=== PATIENT | female | born 1960 | race Caucasian/White ===

== ENCOUNTER 2017-07-14 01:23 | Observation (INO) | payer OTHER ==
--- NOTE | 2017-07-14 02:44 | ED ---
General Adult HPI - General Source: patient, RN notes reviewed Mode of arrival: ambulatory Limitations: no limitations <Betsy Booker - Last Filed: 07/14/17 03:07> <Phil Simpson - Last Filed: 07/20/17 01:15> - General Chief complaint: ENT Stated complaint: Epistaxsis Time Seen by Provider: 07/14/17 01:49 - History of Present Illness Initial comments: 56-year-old female presents to the emergency department with a chief complaint of epistaxis. Patient states this started around 6:00 this morning. She went to the PAC the left side of her nose however she continues to have bleeding from the right side. She states that she is not any blood thinners. She does drink daily. She denies any falls traumas or injuries. They were concerned due to the continued bleeding so they thought that they should be evaluated. The patient has had no other symptoms at this time. Patient denies any recent fever, chills, shortness of breath, chest pain, back pain, abdominal pain, nausea vomiting, numbness or tingling, dysuria or hematuria, constipation or diarrhea, headaches or visual changes, or any other current symptoms. (Betsy Booker) - Related Data Home Medications Medication Instructions Recorded Confirmed Albuterol Inhaler [Ventolin Hfa 1 - 2 puff INHALATION RT-Q6H PRN 07/14/17 Inhaler] Previous Rx's Medication Instructions Recorded Acetaminophen Tab [Tylenol] 650 mg PO Q6HR PRN tab 07/14/17 Cephalexin [Keflex] 500 mg PO Q6HR 3 Days cap 07/14/17 Clindamycin [Cleocin] 150 mg PO QID cap 07/14/17 HYDROcodone/APAP 5-325MG [Alma 1 each PO Q4HR PRN tab 07/14/17 5-325] Nicotine 14Mg/24Hr Patch [Habitrol] 1 patch TRANSDERM DAILY patch 07/14/17 Thiamine [Vitamin B-1] 100 mg PO BID@1200,1700 tab 07/14/17 Allergies Allergy/AdvReac Type Severity Reaction Status Date / Time erythromycin base Allergy Dyspnea Verified 07/14/17 08:36 Penicillins Allergy Rash/Hives Verified 07/14/17 08:36 Sulfa (Sulfonamide Allergy Dyspnea Verified 07/14/17 08:36 Antibiotics) Review of Systems ROS Other: All systems not noted in ROS Statement are negative. <Betsy Booker - Last Filed: 07/14/17 03:07> ROS Other: All systems not noted in ROS Statement are negative. <Phil Simpson - Last Filed: 07/20/17 01:15> ROS Statement: Those systems with pertinent positive or pertinent negative responses have been documented in the HPI. Past Medical History Past Medical History: Asthma, Hypertension Additional Past Medical History / Comment(s): pancreas issues in past History of Any Multi-Drug Resistant Organisms: None Reported Past Surgical History: Appendectomy, Section Past Psychological History: Anxiety Smoking Status: Current every day smoker Past Alcohol Use History: Daily Past Drug Use History: None Reported <Betsy Booker - Last Filed: 07/14/17 03:07> General Exam Limitations: no limitations General appearance: alert, in no apparent distress Eye exam: Present: normal appearance. Absent: scleral icterus, conjunctival injection, periorbital swelling ENT exam: Present: other (Bleeding from the right near. Patient appears her rhinorocket to the left naris) Neck exam: Present: normal inspection. Absent: tenderness, meningismus, lymphadenopathy Respiratory exam: Present: normal lung sounds bilaterally. Absent: respiratory distress, wheezes, rales, rhonchi, stridor Cardiovascular Exam: Present: regular rate, normal rhythm, normal heart sounds. Absent: systolic murmur, diastolic murmur, rubs, gallop, clicks Extremities exam: Present: normal inspection, full ROM, normal capillary refill. Absent: tenderness, pedal edema, joint swelling, calf tenderness Back exam: Present: normal inspection Neurological exam: Present: alert, oriented X3 Psychiatric exam: Present: normal affect, normal mood Skin exam: Present: warm, dry, intact, normal color. Absent: rash <Betsy Booker - Last Filed: 07/14/17 03:07> Course <Betsy Booker - Last Filed: 07/14/17 03:07> <Phil Simpson - Last Filed: 07/20/17 01:15> Vital Signs 07/14/17 07/14/17 07/14/17 01:32 03:11 04:44 Temperature 97.2 F L 98 F 98.3 F Pulse Rate 110 H 109 H 105 H Respiratory 16 18 18 Rate Blood Pressure 134/78 127/94 130/95 O2 Sat by Pulse 97 97 96 Oximetry 07/14/17 07/14/17 05:13 05:22 Temperature 97.9 F Pulse Rate 96 Respiratory 20 Rate Blood Pressure 129/89 O2 Sat by Pulse 96 Oximetry - Reevaluation(s) Reevaluation #1: 07/14/17 03:07 Patient reassessed at this time. Patient is no longer bleeding. (Betsy Booker) Procedures <Betsy Booker - Last Filed: 07/14/17 03:07> <Phil Simpson - Last Filed: 07/20/17 01:15> - Procedures Initial comment: At this time patient underwent Afrin spray and then a Merocel nasal packing was placed to the right near. Patient tolerated this well. Bleeding has subsided. (Betsy Booker) Medical Decision Making <Betsy Booker - Last Filed: 07/14/17 03:07> - Lab Data Result diagrams: 07/14/17 11:21 07/14/17 03:30 <Phil Simpson - Last Filed: 07/20/17 01:15> - Medical Decision Making 56-year-old female presents to the emergency department with chief complaint of epistaxis. At this time we did watch the patient has subsided after packing. This time patient will be discharged home. We will put her on antibiotics we discussed follow-up with ENT. We did discuss return parameters all questions. Patient stated the [facility] management plan. They will be discharged. (Betsy Booker) - Lab Data Lab Results 07/14/17 07/14/17 07/14/17 Range/Units 03:30 03:30 03:30 WBC 9.3 (3.8-10.6) k/uL RBC 4.16 (3.80-5.40) m/uL Hgb 13.3 (11.4-16.0) gm/dL Hct 40.3 (34.0-46.0) % MCV 96.8 (80.0-100.0) fL MCH 32.0 (25.0-35.0) pg MCHC 33.1 (31.0-37.0) g/dL RDW 12.7 (11.5-15.5) % Plt Count 260 (150-450) k/uL Neutrophils % 69 % Lymphocytes % 18 % Monocytes % 8 % Eosinophils % 1 % Basophils % 0 % Neutrophils # 6.4 (1.3-7.7) k/uL Lymphocytes # 1.7 (1.0-4.8) k/uL Monocytes # 0.8 (0-1.0) k/uL Eosinophils # 0.1 (0-0.7) k/uL Basophils # 0.0 (0-0.2) k/uL PT 10.1 (9.0-12.0) sec INR 1.0 (<1.2) APTT 25.3 (22.0-30.0) sec Sodium 134 L (137-145) mmol/L Potassium 4.0 (3.5-5.1) mmol/L Chloride 99 (98-107) mmol/L Carbon Dioxide 24 (22-30) mmol/L Anion Gap 11 mmol/L BUN 14 (7-17) mg/dL Creatinine 0.60 (0.52-1.04) mg/dL Est GFR (MDRD) Af Amer >60 (>60 ml/min/1.73 sqM) Est GFR (MDRD) Non-Af >60 (>60 ml/min/1.73 sqM) Glucose 129 H (74-99) mg/dL Calcium 9.6 (8.4-10.2) mg/dL Total Bilirubin 0.7 (0.2-1.3) mg/dL AST 26 (14-36) U/L ALT 25 (9-52) U/L Alkaline Phosphatase 73 (38-126) U/L Total Protein 7.3 (6.3-8.2) g/dL Albumin 4.2 (3.5-5.0) g/dL Blood Type Blood Type Confirm Blood Type Recheck Antibody Screen Spec Expiration Date 07/14/17 07/14/17 Range/Units 03:58 05:04 WBC (3.8-10.6) k/uL RBC (3.80-5.40) m/uL Hgb (11.4-16.0) gm/dL Hct (34.0-46.0) % MCV (80.0-100.0) fL MCH (25.0-35.0) pg MCHC (31.0-37.0) g/dL RDW (11.5-15.5) % Plt Count (150-450) k/uL Neutrophils % % Lymphocytes % % Monocytes % % Eosinophils % % Basophils % % Neutrophils # (1.3-7.7) k/uL Lymphocytes # (1.0-4.8) k/uL Monocytes # (0-1.0) k/uL Eosinophils # (0-0.7) k/uL Basophils # (0-0.2) k/uL PT (9.0-12.0) sec INR (<1.2) APTT (22.0-30.0) sec Sodium (137-145) mmol/L Potassium (3.5-5.1) mmol/L Chloride (98-107) mmol/L Carbon Dioxide (22-30) mmol/L Anion Gap mmol/L BUN (7-17) mg/dL Creatinine (0.52-1.04) mg/dL Est GFR (MDRD) Af Amer (>60 ml/min/1.73 sqM) Est GFR (MDRD) Non-Af (>60 ml/min/1.73 sqM) Glucose (74-99) mg/dL Calcium (8.4-10.2) mg/dL Total Bilirubin (0.2-1.3) mg/dL AST (14-36) U/L ALT (9-52) U/L Alkaline Phosphatase (38-126) U/L Total Protein (6.3-8.2) g/dL Albumin (3.5-5.0) g/dL Blood Type A Negative Blood Type Confirm A Negative Blood Type Recheck CABO Indicated Antibody Screen NEGATIVE Spec Expiration Date 07/17/2017 1975 Disposition Time of Disposition: 03:07 <Betsy Booker - Last Filed: 07/14/17 03:07> <Phil Simpson - Last Filed: 07/20/17 01:15> Clinical Impression: Anterior epistaxis Disposition: ADMITTED IP TO THIS [facility] Condition: Fair
--- NOTE | 2017-07-14 03:27 | ED ---
Medical Decision Making - Lab Data Result diagrams: 07/14/17 03:30 07/14/17 03:30 - Medical Decision Making Upon discharge the patient started to have additional bleeding from the naris. She states that she hit the cold air she coughed in the bleeding started. Patient at this time is having moderate bleeding from the left naris through the Rhino Rocket. This case will be signed out to Dr. Simpson (Betsy Booker) While the patient's labs were pending, she had a coughing episode and dislodged the packing from her left naris. I replaced the left naris packing in the standard fashion after applying Afrin spray. I then discussed case with Dr. Moreno, who is the on-call ENT specialist. He will see the patient. I also discussed case with Dr. Fabian who is covering the [facility] call schedule and will admit the patient. The patient is offered analgesia and declines at this point stating that she does not want anything that may make her "loopy." She also declined antihypertensive at this point (Phil Simpson) - Lab Data Lab Results 07/14/17 07/14/17 07/14/17 Range/Units 03:30 03:30 03:30 WBC 9.3 (3.8-10.6) k/uL RBC 4.16 (3.80-5.40) m/uL Hgb 13.3 (11.4-16.0) gm/dL Hct 40.3 (34.0-46.0) % MCV 96.8 (80.0-100.0) fL MCH 32.0 (25.0-35.0) pg MCHC 33.1 (31.0-37.0) g/dL RDW 12.7 (11.5-15.5) % Plt Count 260 (150-450) k/uL Neutrophils % 69 % Lymphocytes % 18 % Monocytes % 8 % Eosinophils % 1 % Basophils % 0 % Neutrophils # 6.4 (1.3-7.7) k/uL Lymphocytes # 1.7 (1.0-4.8) k/uL Monocytes # 0.8 (0-1.0) k/uL Eosinophils # 0.1 (0-0.7) k/uL Basophils # 0.0 (0-0.2) k/uL PT 10.1 (9.0-12.0) sec INR 1.0 (<1.2) APTT 25.3 (22.0-30.0) sec Sodium 134 L (137-145) mmol/L Potassium 4.0 (3.5-5.1) mmol/L Chloride 99 (98-107) mmol/L Carbon Dioxide 24 (22-30) mmol/L Anion Gap 11 mmol/L BUN 14 (7-17) mg/dL Creatinine 0.60 (0.52-1.04) mg/dL Est GFR (MDRD) Af Amer >60 (>60 ml/min/1.73 sqM) Est GFR (MDRD) Non-Af >60 (>60 ml/min/1.73 sqM) Glucose 129 H (74-99) mg/dL Calcium 9.6 (8.4-10.2) mg/dL Total Bilirubin 0.7 (0.2-1.3) mg/dL AST 26 (14-36) U/L ALT 25 (9-52) U/L Alkaline Phosphatase 73 (38-126) U/L Total Protein 7.3 (6.3-8.2) g/dL Albumin 4.2 (3.5-5.0) g/dL Blood Type Blood Type Recheck Spec Expiration Date 07/14/17 Range/Units 03:58 WBC (3.8-10.6) k/uL RBC (3.80-5.40) m/uL Hgb (11.4-16.0) gm/dL Hct (34.0-46.0) % MCV (80.0-100.0) fL MCH (25.0-35.0) pg MCHC (31.0-37.0) g/dL RDW (11.5-15.5) % Plt Count (150-450) k/uL Neutrophils % % Lymphocytes % % Monocytes % % Eosinophils % % Basophils % % Neutrophils # (1.3-7.7) k/uL Lymphocytes # (1.0-4.8) k/uL Monocytes # (0-1.0) k/uL Eosinophils # (0-0.7) k/uL Basophils # (0-0.2) k/uL PT (9.0-12.0) sec INR (<1.2) APTT (22.0-30.0) sec Sodium (137-145) mmol/L Potassium (3.5-5.1) mmol/L Chloride (98-107) mmol/L Carbon Dioxide (22-30) mmol/L Anion Gap mmol/L BUN (7-17) mg/dL Creatinine (0.52-1.04) mg/dL Est GFR (MDRD) Af Amer (>60 ml/min/1.73 sqM) Est GFR (MDRD) Non-Af (>60 ml/min/1.73 sqM) Glucose (74-99) mg/dL Calcium (8.4-10.2) mg/dL Total Bilirubin (0.2-1.3) mg/dL AST (14-36) U/L ALT (9-52) U/L Alkaline Phosphatase (38-126) U/L Total Protein (6.3-8.2) g/dL Albumin (3.5-5.0) g/dL Blood Type A Negative Blood Type Recheck CABO Indicated Spec Expiration Date 07/17/2017 5594 Disposition Clinical Impression: Anterior epistaxis Disposition: ADMITTED IP TO THIS [facility] Condition: Fair Instructions: Nosebleed (ED) Prescriptions: Cephalexin [Keflex] 500 mg PO Q6HR 3 Days cap Referrals: Regulo Moreno MD [STAFF PHYSICIAN] - 1-2 days
[2017-07-14 03:51] LABS: Basophils % (A) 0 %; Eosinophils # (A) 0.1 k/uL (0-0.7); Eosinophils % (A) 1 %; HCT 40.3 % (34.0-46.0); HGB 13.3 gm/dL (11.4-16.0); Lymphocytes # (A) 1.7 k/uL (1.0-4.8); Lymphocytes % (A) 18 %; MCHC 33.1 g/dL (31.0-37.0); MCV 96.8 fL (80.0-100.0); Mean Platelet Volume 6.7; Monocytes # (A) 0.8 k/uL (0-1.0); Monocytes % (A) 8 %; Neutrophils # (A) 6.4 k/uL (1.3-7.7); Neutrophils % (A) 69 %; Platelet Count 260 k/uL (150-450); RBC 4.16 m/uL (3.80-5.40); RDW 12.7 % (11.5-15.5); WBC 9.3 k/uL (3.8-10.6)
[2017-07-14 04:00] LABS: Partial Thromboplastin Time 25.3 sec (22.0-30.0); Prothrombin Time 10.1 sec (9.0-12.0)
[2017-07-14 04:03] LABS: ALT 25 U/L (9-52); AST 26 U/L (14-36); Albumin 4.2 g/dL (3.5-5.0); Alkaline Phosphatase 73 U/L (38-126); Anion Gap 11 mmol/L; Blood Urea Nitrogen 14 mg/dL (7-17); Calcium 9.6 mg/dL (8.4-10.2); Carbon Dioxide 24 mmol/L (22-30); Chloride 99 mmol/L (98-107); Glucose 129 mg/dL (74-99); Sodium 134 mmol/L (137-145); Total Bilirubin 0.7 mg/dL (0.2-1.3); Total Protein 7.3 g/dL (6.3-8.2)
[2017-07-14] MEDS ORDERED: OXYMETAZOLINE 0.05% NASL SPRAY 1 SPRAY BOTTLE NASAL STA (04:31)
[2017-07-14] MEDS ORDERED: LORazepam 2 MG/ML INJ IV STA (04:40)
[2017-07-14] MEDS ORDERED: cloNIDine HCL 0.1 MG TAB PO STA (04:41)
[2017-07-14] MEDS ORDERED: SODIUM CHLORIDE 0.9% 1,000 ML IV ONE (05:08)
[2017-07-14 06:02] VITALS: BMI 23.6
[2017-07-14] MEDS ORDERED: NALOXONE 0.4 MG/ML 1 ML VIAL IV PRN (06:59)
[2017-07-14] MEDS ORDERED: LORazepam 2 MG/ML INJ IV PRN ×3 (07:11)
[2017-07-14] MEDS ORDERED: THIAMINE 100 MG/ML 2 ML VIAL IM STA (07:11)
--- NOTE | 2017-07-14 07:13 | P.HPIM ---
History of Present Illness H&P Date: 07/14/17 Chief Complaint: epistaxis 56 year old female with history of intermittent asthma. Patient presented due to severe epistaxis that started the morning of 07/13 at 6 am, stopped for short period then started bleeding non stop again. this has never happened before, denies being on any blood thinners, denies any trauma to the nose. she denies any headache, fever, chills, or bleeding tendency. She admits to drinking on regular basis, few beers daily and had withdrawal in the past when she was drinking vodka. Otherwise denies any symptoms of asthma , and reports using her inhaler once every few weeks Review of Systems Constitutional: Patient denies fever, denies chills, denies night sweating, denies significant weight changes Eyes: Patient denies visual changes, denies eye pain ENT: Patient denies ear pain, denies rhinorrhea, denies sore throat Cardiovascular: Patient denies chest pain, denies exertional dyspnea, denies peripheral leg edema, denies orthopnea, denies paroxysmal nocturnal dyspnea Respiratory:Patient denies cough, denies wheezing, denies shortness of breath Gastrointestinal: Patient denies diarrhea, denies constipation, denies nausea , denies vomiting, denies abdominal pain Genitourinary: Patient denies dysuria, denies hematuria, denies changes in urinary habits, denies genital lesions Musculoskeletal: Patient denies muscle pain, denies joint pain Psychiatric: Patient denies changes in mood or memory, denies suicidal ideation, denies anxiety Endocrine: Patient denies heat intolerance, denies cold intolerance, denies excessive thirst, denies polyuria Neurological: Patient denies focal neurologic deficits, denies weakness, denies numbness, denies tingling Hem/Lymphatic: Patient denies bleeding tendency, denies bruising, denies swollen lymph glands Allergic/Immun: Patient denies recent allergic reactions Skin: Patient denies rashes, denies pruritis, denies ulcers Past Medical History Past Medical History: Asthma Additional Past Medical History / Comment(s): pancreas issues in past History of Any Multi-Drug Resistant Organisms: None Reported Past Surgical History: Appendectomy, Section Past Anesthesia/Blood Transfusion Reactions: No Reported Reaction Past Psychological History: Anxiety Smoking Status: Current every day smoker Past Alcohol Use History: Daily Past Drug Use History: None Reported - Past Family History family Additional Family Medical History / Comment(s): denies any family history of CAD , reports that an uncle had to have a colostomy bag but does not know the reason Medications and Allergies Home Medications Medication Instructions Recorded Confirmed Type Cephalexin [Keflex] 500 mg PO Q6HR 3 Days cap 07/14/17 Rx Allergies Allergy/AdvReac Type Severity Reaction Status Date / Time erythromycin base Allergy Dyspnea Verified 07/14/17 01:40 Penicillins Allergy Rash/Hives Verified 07/14/17 01:39 Sulfa (Sulfonamide Allergy Dyspnea Verified 07/14/17 01:40 Antibiotics) Physical Exam Vitals: Vital Signs Temp Pulse Pulse Resp BP BP Pulse Ox 07/14/17 06:22 109 H 18 07/14/17 05:42 97.9 F 109 H 18 138/92 94 L 07/14/17 05:22 97.9 F 07/14/17 05:13 96 20 129/89 96 07/14/17 04:44 98.3 F 105 H 18 130/95 96 07/14/17 03:11 98 F 109 H 18 127/94 97 07/14/17 01:32 97.2 F L 110 H 16 134/78 97 Intake and Output 07/13/17 07/14/17 07/14/17 22:59 06:59 14:59 Other: Weight 56.699 kg Constitutional: No acute distress, conversant, pleasant Eyes: Anicteric sclerae, moist conjunctiva, no lid-lag Pupils equal round reactive to light ENMT: NC/AT nasal packing bilaterally with still some active bleeding evident by blood oozing around the nasal packing. Oropharynx clear, no erythema, exudates Neck: Supple, FROM, no masses, or JVD No carotid bruits No thyromegaly Lungs: Clear to auscultation Clear to percussion Normal respiratory effort, no accessory muscle use Cardiovascular: Heart regular in rate and rhythm, No murmurs, gallops, or rubs No peripheral edema Abdominal: Soft Nontender, no guarding, rebound or rigidity Abdomen moving with respiration Normoactive bowel sounds No hepatomegaly, No splenomegaly No palpable mass No abdominal wall hernia noted Skin: Normal temperature, tone, texture, turgor No induration No subcutaneous nodules No rash, lesions No ulcers Extremities: No digital cyanosis No clubbing Pedal pulses intact and symmetrical Radial pulses intact and symmetrical No calf tenderness Psychiatric: Alert and oriented to person, place and time Appropriate affect fair judgment Neuro Muscles Strength 5/5 in all 4 extremities Sensation to light touch grossly present throughout Cranial nerves II-XII grossly intact No focal sensory deficits Lymphatics: no palpable cervical or supraclavicular , or inguinal lymph nodes Results CBC & Chem 7: 07/14/17 03:30 07/14/17 03:30 Labs: Abnormal Lab Results - Last 24 Hours (Table) 07/14/17 Range/Units 03:30 Sodium 134 L (137-145) mmol/L Glucose 129 H (74-99) mg/dL Thrombosis Risk Factor Assmnt - Choose All That Apply Each Factor Represents 1 point: Age 41-60 years Thrombosis Risk Factor Assessment Total Risk Factor Score: 1 Thrombosis Risk Factor Assessment Level: Low Risk Assessment and Plan (1) Anterior epistaxis Narrative/Plan: denies any trauma denies any bleeding tendency nasal packing bilaterally blood pressure controlled await ENT evaluation Current Visit: Yes Status: Acute Code(s): R04.0 - EPISTAXIS SNOMED Code(s) : 588680961 (2) Alcohol abuse Narrative/Plan: counseled regarding acceptable amount of drinking in women Benzo PRN per CIWA and withdrawal precautions Current Visit: Yes Status: Acute Code(s): F10.10 - ALCOHOL ABUSE, UNCOMPLICATED SNOMED Code(s): 35489309 (3) Smoking Narrative/Plan: counseled to quit smoking NRT offered Current Visit: Yes Status: Acute Code(s): F17.200 - NICOTINE DEPENDENCE, UNSPECIFIED, UNCOMPLICATED SNOMED Code(s): 79289190 (4) DVT prophylaxis Narrative/Plan: avoid pharmacologic anticoagulation due to active epistaxis SCDs Current Visit: Yes Status: Acute Code(s): BFW2573 - SNOMED Code(s): 549656099 Plan: Surrogate decision-maker: daughter Gerardo CODE STATUS:full code DVT prophylaxis: scd Discussed with: Patient, ER, RN Anticipated discharge: <[address]: home A total of 45 minutes were spent on the care of this complex patient more than 50% of the time was spent in counseling and care coordination.
[2017-07-14 08:15] LABS: Basophils % (A) 0 %; Eosinophils # (A) 0.1 k/uL (0-0.7); Eosinophils % (A) 1 %; HCT 37.6 % (34.0-46.0); HGB 12.4 gm/dL (11.4-16.0); Lymphocytes # (A) 1.4 k/uL (1.0-4.8); Lymphocytes % (A) 16 %; MCH 31.6 pg (25.0-35.0); MCHC 33.1 g/dL (31.0-37.0); MCV 95.5 fL (80.0-100.0); Mean Platelet Volume 7.2; Monocytes # (A) 0.6 k/uL (0-1.0); Monocytes % (A) 8 %; Neutrophils # (A) 6.2 k/uL (1.3-7.7); Neutrophils % (A) 74 %; Platelet Count 241 k/uL (150-450); RBC 3.93 m/uL (3.80-5.40); RDW 12.7 % (11.5-15.5); WBC 8.5 k/uL (3.8-10.6)
[2017-07-14] MEDS ORDERED: NICOTINE 14MG/24HR PATCH TRANSDERM SCH (09:00)
[2017-07-14] MEDS ORDERED: HYDROcodone/APAP 5-325MG 1 EACH TAB PO PRN (09:47)
[2017-07-14 12:14] LABS: HCT 38.4 % (34.0-46.0); HGB 12.5 gm/dL (11.4-16.0); MCHC 32.5 g/dL (31.0-37.0); MCV 95.5 fL (80.0-100.0); Mean Platelet Volume 7.3; Platelet Count 246 k/uL (150-450); RBC 4.02 m/uL (3.80-5.40); RDW 13.8 % (11.5-15.5); WBC 7.7 k/uL (3.8-10.6)
[2017-07-14 12:27] LABS: Prothrombin Time 10.1 sec (9.0-12.0)
--- NOTE | 2017-07-14 12:32 | P.PN ---
Subjective Progress Note Date: 07/14/17 Principal diagnosis: epistaxis Patient is a 56-year-old female with a history of EtOH use, asthma, and tobacco abuse who presented to the hospital with complaints of a severe nosebleed. In the ER she underwent an extensive evaluation. Her initial vital signs are found within normal limits. Initial laboratory analysis was normal. In the ER they had placed a nasal tampon inhibitive. For discharge home but she started having moderate bleeding of the left snare through the Rhino Rocket. She had also had an episode of coughing which dislodged the packing from the left snare. She was admitted for observation after they had discussed with Dr. Prieto. On the morning of 07/14 she did develop some coughing up of blood. On exam it appears that this was coming to the back of her throat. She was seen by ENT who recommended antibiotics and monitoring her overnight. Patient seen and examined at bedside. She complains of coughing up blood. She complains of discharge from her left snare. She denies any nausea, vomiting, chest pain, and shortness of breath. She does have a lot of pressure in her face but no overt headache. I discussed with her that she should not to try to extract the blood clot from her left snare believe that in place. I also injected her to attempt to minimize coughing as it appears that she may have dislodged a blood clot which has caused blood to run down the back of her throat resulting in coughing. Objective - Vital Signs Vital signs: Vital Signs Temp 98.8 F 07/14/17 11:35 Pulse 97 07/14/17 11:35 Resp 16 07/14/17 11:35 BP 129/100 07/14/17 11:35 Pulse Ox 93 L 07/14/17 11:35 Intake & Output 07/13/17 07/14/17 07/14/17 18:59 06:59 18:59 Weight 56.699 kg - Exam General: non toxic, mild distress, appears at stated age Derm: warm, dry Head: atraumatic, normocephalic, symmetric, nasal packing in place with large amount of coagulated blood on left nasal tampon. Eyes: EOMI, no lid lag, anicteric sclera Mouth: no lip lesion, mucus membranes moist, + blood dripping down the back of her throat. Large amount of coagulated blood in basin Cardiovascular: S1S2 reg, no murmur, positive posterior tibial pulse bilateral, Lungs: CTA bilateral, no rhonchi, no rales , no accessory muscle use Abdominal: soft, nontender to palpation, no guarding, no appreciable organomegaly Ext: no gross muscle atrophy, no edema, no contractures Neuro: CN II-XI grossly intact, no focal neuro deficits Psych: Alert, oriented, anxious - Labs CBC & Chem 7: 07/14/17 08:04 07/14/17 03:30 Labs: Abnormal Lab Results - Last 24 Hours (Table) 07/14/17 Range/Units 03:30 Sodium 134 L (137-145) mmol/L Glucose 129 H (74-99) mg/dL Assessment and Plan Assessment: Epistaxis -ENT recommendations appreciated -Continue with nasal packing -Recheck CBC and INR Tobacco abuse -Nicotine replacement -Cessation Alcohol abuse -[facility] protocol -Thiamine supplementation DVT prophylaxis: early ambulation Discussed with: Patient, nursing Anticipated discharge: [address]: home A total of 35 minutes was spent on the care of this complex patient more than 50 % of the time was spent in counseling and care coordination.
[2017-07-14] MEDS: CLINDAMYCIN 150 MG CAP PO SCH ×2 (12:46→20:15)
[2017-07-14] MEDS ORDERED: ACETAMINOPHEN TAB 325 MG TAB PO PRN (12:49)
--- NOTE | 2017-07-14 12:55 | CONS ---
CONSULTATION REASON FOR CONSULTATION: Epistaxis. HISTORY: This is a 56-year-old white female who last night developed left-sided epistaxis. She was seen at [facility], had a anterior pack placed on the left. This worked at first but then started bleeding again and she presented to [facility] for further evaluation. She initially had a right-sided nasal pack placed and when she was discharged, apparently sneezed and the left-sided packages came out and then she had a posterior rhino rocket placed on the left. This has controlled the bleeding reasonably well since. She has not had epistaxis previously. She denies any chronic nasal symptoms, any facial pain or pressure. She has a history of tobacco and alcohol use. PAST MEDICAL HISTORY: Positive for pancreas misuse, asthma. PAST SURGICAL HISTORY: Appendectomy, section. SOCIAL HISTORY: Does smoke and drink alcohol. FAMILY HISTORY: Negative for heart, lung, liver disease, diabetes, seizure disorders, bleeding disorders. REVIEW OF SYSTEMS: Facial and nasal discomfort with pack. Otherwise is noncontributory. ALLERGIES: To PENICILLIN, which gives a rash, ERYTHROMYCIN and SULFA. MEDICATIONS AT HOME: Was prescribed Keflex, but has not taken this yet, that was for outpatient use for the nasal packing. GENERAL: This is a well-developed adult white female in no acute distress. Vital signs are stable. She has been mildly hypertensive; however, which appears controlled now. Otherwise, vital signs are stable. HEENT: Head normocephalic and atraumatic. Ears, canals clear, tremors unremarkable. Nose shows a rhino rocket double balloon pack on the left having and a Merocel pack on the right. There is occasional slight bruise on the left. Oral cavity, oropharynx shows no abnormal masses or lesions with no active bleeding posteriorly. Neck is supple without adenopathy or tenderness. ASSESSMENT: 1. Left posterior epistaxis. 2. Hypertension. PLAN: Patient overall is improved at this point and has much better control. I explained to the patient that generally speaking, once a posterior pack was placed, this is left in place for approximately 3 days and then removed. Certainly, may require other intervention such as surgical intervention or embolization if this does not control the bleeding as well as other workup such as a CT if this does not follow general patterns. She will need to be on prophylactic antibiotics as well as some pain medication as these have not been ordered at this point. Would expect that she may be able to be discharged tomorrow if she is doing reasonably well and would see in the office around for packing removal. Please call for any questions or concerns in the meantime. MMODL / IJN: [id number] /
--- NOTE | 2017-07-14 12:58 | CONS ---
CONSULTATION ADDENDUM: Note that 30 minute consultation time with approximately 70% of this in counseling. MMODL / IJN: [id number] /
[2017-07-14 15:29] VITALS: RESP 18
--- NOTE | 2017-07-14 16:23 | P.DS ---
Providers Date of admission: 07/14/17 05:08 Expected date of discharge: 07/14/17 Attending physician: Kerri Vanegas MD Consults: 07/14/17 05:08 Consult Physician Urgent Consulting Provider: Regulo Moreno Reason/Comments: epistaxis Do you want consulting provider notified?: Already Contacted Primary care physician: Stated None - Discharge Diagnosis(es) (1) Acute posterior epistaxis Current Visit: Yes Status: Acute (2) Tobacco abuse Current Visit: Yes Status: Acute (3) Alcohol abuse Current Visit: Yes Status: Acute Hospital Course: Patient is a 56-year-old female with a history of EtOH use, asthma, and tobacco abuse who presented to the hospital with complaints of a severe nosebleed. In the ER she underwent an extensive evaluation. Her initial vital signs are found within normal limits. Initial laboratory analysis was normal. In the ER they had placed a nasal tampon initially. For discharge home but she started having moderate bleeding of the left snare through the [employer]. She had also had an episode of coughing which dislodged the packing from the left nare, this was replaced in the emergency department. She was admitted for observation after they had discussed with Dr. Prieto. She was evaluated by ENT ( Dr. Moreno) who recommended leaving nasal packing in place for 72 hours , antibiotics, and monitoring her overnight. He stated that if bleeding did not improve or worsened she would need surgery on embolization. After his initial evaluation on the morning of 07/14 she did develop some coughing up of blood. On exam it appears that this was coming down the back of her throat. This slowed for a few hours, but then recurred. ENT was again contacted and recommended transfer the [facility] for definitive treatment of her posterior nose bleed. Patient has not been on any anticoagulants or antiplatelets. She denies any over the counter ASA or NSAIDS, she has not been talking any supplements. She was placed on CIWA protocol for drinking a few beers daily. [facility] Llamas was contacted and Dr. Porter graciously accepted the patient in transfer for definitive management. For physical exam from day of discharge please see progress note same date. A total of 40 minutes was spent on the discharge of this complex patient. Pertinent Studies: None Patient Condition at Discharge: Fair Plan - Discharge Summary New Discharge Prescriptions: New Cephalexin [Keflex] 500 mg PO Q6HR 3 Days cap Acetaminophen Tab [Tylenol] 650 mg PO Q6HR PRN tab PRN Reason: Fever And/ Or Pain Clindamycin [Cleocin] 150 mg PO QID cap HYDROcodone/APAP 5-325MG [Warren 5-325] 1 each PO Q4HR PRN tab PRN Reason: Pain Nicotine 14Mg/24Hr Patch [Habitrol] 1 patch TRANSDERM DAILY patch Thiamine [Vitamin B-1] 100 mg PO BID@1200,1700 tab Continue Albuterol Inhaler [Ventolin Hfa Inhaler] 1 - 2 puff INHALATION RT-Q6H PRN PRN Reason: Shortness Of Breath Discharge Medication List Acetaminophen Tab [Tylenol] 650 mg PO Q6HR PRN tab 07/14/17 [Rx] Albuterol Inhaler [Ventolin Hfa Inhaler] 1 - 2 puff INHALATION RT-Q6H PRN [History] Cephalexin [Keflex] 500 mg PO Q6HR 3 Days cap 07/14/17 [Rx] Clindamycin [Cleocin] 150 mg PO QID cap 07/14/17 [Rx] HYDROcodone/APAP 5-325MG [Warren 5-325] 1 each PO Q4HR PRN tab 07/14/17 [Rx] Nicotine 14Mg/24Hr Patch [Habitrol] 1 patch TRANSDERM DAILY patch 07/14/17 [Rx] Thiamine [Vitamin B-1] 100 mg PO BID@1200,1700 tab 07/14/17 [Rx] Follow up Appointment(s)/Referral(s): Regulo Moreno MD [STAFF PHYSICIAN] - 1-2 days Patient Instructions/Handouts: Nosebleed (ED) Activity/Diet/Wound Care/Special Instructions: NPO, transferred to [facility] Main Discharge Disposition: OTHER INSTITUTION NOT DEFINED
[2017-07-14] MEDS ORDERED: THIAMINE 100 MG TAB PO SCH (17:00)
[2017-07-14 19:30] VITALS: BP 136/85; PULSE 114; TEMP 98.4
== END 2017-07-14 19:55 | disposition other institution (70) ==
LOC: EC 01:23 → 3OBS 05:08
PROVIDERS: ADMIT Internal Medicine; ATTEND Internal Medicine
DX: R04.0 Epistaxis (principal); F10.10 Alcohol abuse, uncomplicated; I10 Essential (primary) hypertension; F17.200 Nicotine dependence, unspecified, uncomplicated; Z88.0 Allergy status to penicillin; Z88.2 Allergy status to sulfonamides; Z88.1 Allergy status to other antibiotic agents
CPT/HCPCS: 99284; 96372; 36415; 86900; 86901; 80053; 85025; 85027; 85610; 85730; 86850; G0378; J3411